=== PATIENT | female | born 1960 | race Caucasian/White ===

== ENCOUNTER 2017-06-05 07:02 | Observation (INO) | payer OTHER ==
[~2017-06-05] VITALS: Ht 170.2 cm; Wt 90.8 kg
[~2017-06-05 07:02] MED LIST: ASCO250C3 PO; CALC500C50 PO; CHOL100027 PO; CYAN1DRO SL; GLUCOSAMINE PO; LACT10CA3 PO; MAGN250T3 PO; MELA1TAB4 SL; MULT-845 PO
[2017-06-05] MEDS ORDERED: ASPIRIN 324 MG CHEW PO STA (07:13)
[2017-06-05] MEDS ORDERED: NITROGLYCERIN 0.4 MG SL PER TAB CHARGE SL STA (07:13)
[2017-06-05] MEDS ORDERED: SODIUM CHLORIDE 0.9% 1000ML 1,000 ML IV STA (07:13)
[2017-06-05 07:27] LABS: BASO % 0.3 %; BASO ABS # 0.03 K/uL (0-0.2); COMPLETE YES; EOS % 4.7 %; HEMATOCRIT 45.2 % (37-47); IG% 0.3 %; LYMPH % 31.9 %; LYMPH ABS # 3.04 K/uL (1.2-3.4); MEAN CELL VOLUME 90.6 fL (80-100); MEAN CORPUSCULAR HEMOGLOBIN 30.1 pg (25-34); MEAN CORPUSCULAR HGB CONC 33.2 g/dl (32-36); MEAN PLATELET VOLUME 9.8 fL (7.4-10.4); MONO % 6.8 %; PLATELET COUNT 354 K/uL (130-400); RED BLOOD COUNT 4.99 M/uL (4.2-5.4); WHITE BLOOD COUNT 9.52 K/uL (4.8-10.8)
[2017-06-05] MEDS ORDERED: GLUC10007 PO (07:28)
--- NOTE | 2017-06-05 07:28 | EMERGENCY ROOM VISIT NOTE ---
History First contact with patient: 07:05 Chief Complaint: CHEST PAIN Stated Complaint: CHEST PAINS Nursing Triage Summary: Pt states she woke up with bilateral chest pain approx 30 to 60 minutes ago. Pt associates bilateral arm tingling, SOB, diaphoresis, nausea, dizziness. Hx Heart murmer 10/10 "Heavy" History of Present Illness The patient is a 56 year old female who presents to the Emergency Room with complaints of chest pain. The patient states that she woke with chest pain approximately 30-60 minutes ago. She states the pain is in the chest, does not radiate is described as heaviness and rated 10/10. She also reports shortness of breath and feeling sweaty. The patient had to be assisted out of her vehicle. She denies any earache, sore throat, cough, fever. She denies any abdominal pain, nausea or vomiting. She denies any extremity swelling. She denies any recent travel or personal history of DVT, PE, coagulopathy or cancer. She does not smoke. She denies any personal history of hypertension, hyperlipidemia or diabetes. She states that there is cardiac history on her father's side. She has never had a stress test or cardiac catheterization. Review of Systems A 10 system review of systems was completed with positives and pertinent negatives listed in the HPI. Past Medical/Surgical History Medical Problems: (1) Chest pain (2) Cholelithiasis Nos (3) Hypothyroidism Nos (4) Kidney stone (5) Mucous Polyp Of Cervix Surgical Problems: (1) History of dental surgery (2) S/P section Family History Cancer Diabetes mellitus Heart disease Kidney disease Social History Smoking Status: Never Smoker Alcohol Use: none Drug Use: none Marital Status: Housing Status: lives with family Current/Historical Medications Scheduled Glucosamine Sulfate (Glucosamine), 1,000 MG PO DAILY Scheduled PRN Albuterol (Ventolin Hfa), 2 PUFFS INH Q4H PRN for Wheezing Physical Exam Vital Signs Date Time Temp Pulse Resp B/P (MAP) Pulse Ox O2 Delivery O2 Flow Rate FiO2 06/05/17 11:05 69 17 95 06/05/17 11:00 132/77 06/05/17 10:35 72 17 96 06/05/17 10:30 121/71 06/05/17 10:17 64 93 06/05/17 10:00 140/78 06/05/17 09:47 68 20 94 06/05/17 09:31 131/82 06/05/17 09:17 73 21 95 06/05/17 09:12 155/90 06/05/17 09:02 66 15 97 06/05/17 08:02 81 18 06/05/17 07:32 81 20 98 06/05/17 07:09 84 06/05/17 07:07 173/94 06/05/17 07:07 36.8 81 22 173/94 97 Room Air 06/05/17 07:07 97 Room Air Physical Exam VITALS: Vitals are noted on the nurse's note and reviewed by myself. Vital signs stable. The patient is afebrile. She is not tachycardic or hypoxic. GENERAL: This is a 56-year-old female, anxious appearing, in no acute distress, nondiaphoretic, well-developed well-nourished. SKIN: The skin was without rashes, erythema, edema, or bruising. There is no tenting of the skin. Capillary reflex less than 2 seconds. HEAD: Normocephalic atraumatic. EARS: The external ears are normal in appearance. EYES: Pupils equal round and reactive to light and accommodation. Conjunctivae without injection, sclerae without icterus. Extraocular movements intact. NOSE: Patent, turbinates without inflammation or discharge. MOUTH: Mucous membranes moist. Tonsils are not enlarged. Pharynx without erythema or exudate. Uvula midline. Airway patent. Tongue does not deviate. NECK: Supple without nuchal rigidity. No lymphadenopathy. No thyromegaly. Cervical spine is nontender. No JVD. HEART: Regular rate and rhythm without murmurs gallops or rubs. LUNGS: Clear to auscultation bilaterally without wheezes, rales or rhonchi. No retractions or accessory muscle use. ABDOMEN: Positive bowel sounds x 4. Soft, nontender, without masses or organomegaly. MUSCULOSKELETAL: No muscle atrophy, erythema, or edema noted. Full range of motion in all extremities. Normal gait. Strength 5/5 throughout. NEURO: Patient was alert and oriented to person place and time. No focal neurological deficits. Medical Decision & Procedures ER Provider Diagnostic Interpretation: CHEST ONE VIEW PORTABLE CLINICAL HISTORY: Chest pain. COMPARISON STUDY: Chest radiograph November 03, 2014. FINDINGS: Lung volumes are mildly diminished. No pneumothorax or pleural effusion is present. Linear bibasilar opacities suggest atelectasis. There is no consolidation to suggest pneumonia. Cardiomediastinal silhouette is normal. Pulmonary vascularity is normal. IMPRESSION: No acute cardiopulmonary findings. Laboratory Results 06/05/17 07:10 Red Blood Count 4.99, Mean Corpuscular Volume 90.6, Mean Corpuscular Hemoglobin 30.1, Mean Corpuscular Hemoglobin Concent 33.2, Mean Platelet Volume 9.8, Neutrophils (%) (Auto) 56.0, Lymphocytes (%) (Auto) 31.9, Monocytes (%) (Auto) 6.8, Eosinophils (%) (Auto) 4.7, Basophils (%) (Auto) 0.3, Neutrophils # (Auto) 5.32, Lymphocytes # (Auto) 3.04, Monocytes # (Auto) 0.65, Eosinophils # (Auto) 0.45, Basophils # (Auto) 0.03 06/05/17 07:10 06/05/17 09:01 Test 06/05/17 07:10 06/05/17 07:19 06/05/17 08:09 06/05/17 08:22 White Blood Count 9.52 K/uL (4.8-10.8) Red Blood Count 4.99 M/uL (4.2-5.4) Hemoglobin 15.0 g/dL (12.0-16.0) Hematocrit 45.2 % (37-47) Mean Corpuscular Volume 90.6 fL (80-100) Mean Corpuscular Hemoglobin 30.1 pg (25-34) Mean Corpuscular Hemoglobin Concent 33.2 g/dl (32-36) Platelet Count 354 K/uL (130-400) Mean Platelet Volume 9.8 fL (7.4-10.4) Neutrophils (%) (Auto) 56.0 % Lymphocytes (%) (Auto) 31.9 % Monocytes (%) (Auto) 6.8 % Eosinophils (%) (Auto) 4.7 % Basophils (%) (Auto) 0.3 % Neutrophils # (Auto) 5.32 K/uL (1.4-6.5) Lymphocytes # (Auto) 3.04 K/uL (1.2-3.4) Monocytes # (Auto) 0.65 K/uL (0.11-0.59) Eosinophils # (Auto) 0.45 K/uL (0-0.5) Basophils # (Auto) 0.03 K/uL (0-0.2) RDW Standard Deviation 41.3 fL (36.4-46.3) RDW Coefficient of Variation 12.5 % (11.5-14.5) Immature Granulocyte % (Auto) 0.3 % Immature Granulocyte # (Auto) 0.03 K/uL (0.00-0.02) Anion Gap 5.0 mmol/L (3-11) Est Creatinine Clear Calc Drug Dose 112.2 ml/min Estimated GFR () 115.3 Estimated GFR (Non- 99.4 BUN/Creatinine Ratio 13.2 (10-20) Calcium Level 8.6 mg/dl (8.5-10.1) Total Bilirubin 0.5 mg/dl (0.2-1) Alanine Aminotransferase (ALT/SGPT) 22 U/L (12-78) Alkaline Phosphatase 58 U/L (45-117) Total Protein 7.0 gm/dl (6.4-8.2) Albumin 3.3 gm/dl (3.4-5.0) Globulin 3.7 gm/dl (2.5-4.0) Albumin/Globulin Ratio 0.9 (0.9-2) Lipase 174 U/L (73-393) Bedside D-Dimer 127 ng/mlFEU (0-450) Urine Color YELLOW Urine Appearance CLEAR (CLEAR) Urine pH 7.5 (4.5-7.5) Urine Specific [place] 1.010 (1.000-1.030) Urine Protein NEG (NEG) Urine Glucose (UA) NEG (NEG) Urine Ketones NEG (NEG) Urine Occult Blood NEG (NEG) Urine Nitrite NEG (NEG) Urine Bilirubin NEG (NEG) Urine Urobilinogen NEG (NEG) Urine Leukocyte Esterase NEG (NEG) Prothrombin Time 9.9 SECONDS (9.0-12.0) Prothromb Time International Ratio 0.9 (0.9-1.1) Activated Partial Thromboplast Time 26.6 SECONDS (21.0-31.0) Partial Thromboplastin Ratio 1.0 Test 06/05/17 09:01 06/05/17 09:46 Aspartate Amino Transf (AST/SGOT) 13 U/L (15-37) Bedside Troponin I < 0.030 ng/ml (0-0.045) Medications Administered Medications (Trade) Dose Ordered Sig/Сергей Route Start Time Stop Time Status Last Admin Dose Admin Aspirin (Aspirin Chew) 324 mg NOW STAT PO 06/05/17 07:13 06/05/17 07:15 DC 06/05/17 07:29 324 MG Sodium Chloride 1,000 ml @ 125 mls/hr Q8H STAT IV 06/05/17 07:13 06/05/17 12:38 DC 06/05/17 07:29 125 MLS/HR Procedure The patient was monitored on a turntable worker. They maintained a normal sinus rhythm without ectopy. ECG Indication: chest pain Rate (beats per minute): 87 Rhythm: normal sinus Findings: nonspecific-ST abn Change: no significant change ED Course The patient was seen and examined. Previous visits were reviewed. The patient does not have a fever or leukocytosis. She does not have any significant electrolyte abnormality. Initial cardiac enzymes are not elevated. Lipase is not elevated. D-dimer is not elevated. Urinalysis is negative. Chest x-ray does not reveal any significant acute abnormality Initial EKG revealed a normal sinus rhythm with nonspecific ST-T wave changes. The patient was given aspirin. Her pain resolved. She was not given nitroglycerin as she was pain-free. The patient was given an ambulatory trial. Near the end of the ambulatory trial , the patient developed chest pain which she described as pressure. At this time an EKG was obtained. This revealed a normal sinus rhythm with a rate of 75 bpm without any evidence for ischemia or arrhythmia. A repeat troponin was obtained and was negative. This was approximately a 90 minute troponin. I discussed the case with Dr. Barrientos. He suggest that since the patient's pain recurred and it seems to be exertional in nature she would be best served to be admitted to the hospital and evaluated from a cardiac standpoint. I discussed the case with the hospitalist service and they will evaluate the patient. The case was discussed with Dr. Guzman who agrees with the assessment and plan. Medical Decision DIFFERENTIAL DIAGNOSIS: Aortic dissection, myocarditis, pericarditis, cervical disc disease, costochondritis, herpes zoster, rib fracture, pleuritis, pneumonia , pulmonary embolus, tension pneumothorax, anxiety disorder, somatoform disorder , choledocholithiasis, status, esophagitis, esophageal spasm, esophageal reflux , esophageal rupture, pancreatitis, peptic ulcer disease, cardiac ischemia, ST elevation CA, acute coronary syndrome, arrhythmia, coronary artery vasospasm. vavular heart disease, coronary artery disease, among others. Medication Reconcilliation Current Medication List: was personally reviewed by me Blood Pressure Screening Patient's blood pressure: Elevated blood pressure Blood pressure disposition: Referred to PCP Impression Primary Impression: Substernal precordial chest pain Departure Information Dispostion Admitted as an inpatient Referrals Winnie Macias D.O. (PCP) Patient Instructions My [facility]
--- NOTE | 2017-06-05 07:31 | DIAGNOSTIC IMAGING REPORT ---
CHEST ONE VIEW PORTABLE CLINICAL HISTORY: Chest pain. COMPARISON STUDY: Chest radiograph November 03, 2014. FINDINGS: Lung volumes are mildly diminished. No pneumothorax or pleural effusion is present. Linear bibasilar opacities suggest atelectasis. There is no consolidation to suggest pneumonia. Cardiomediastinal silhouette is normal. Pulmonary vascularity is normal. IMPRESSION: No acute cardiopulmonary findings. Electronically signed by: Bharat Bean M.D. 06/05/2017 7:30 AM Dictated Date/Time: 06/05/2017 7:29 AM
[2017-06-05 07:38] LABS: POINT OF CARE TROPONIN I < 0.030 ng/ml (0-0.045)
[2017-06-05 07:52] LABS: ALB/GLOB RATIO 0.9 (0.9-2); ALKALINE PHOSPHATASE 58 U/L (45-117); ALT/SGPT 22 U/L (12-78); BLOOD UREA NITROGEN 9 mg/dl (7-18); BUN/CREATININE RATIO 13.2 (10-20); CALCIUM 8.6 mg/dl (8.5-10.1); CARBON DIOXIDE 27 mmol/L (21-32); CHLORIDE 108 mmol/L (98-107); CREATININE 0.66 mg/dl (0.60-1.20); GLUCOSE 97 mg/dl (70-99); SODIUM 140 mmol/L (136-145)
[2017-06-05 08:19] LABS: URINE APPEARANCE CLEAR (CLEAR); URINE BILIRUBIN NEG (NEG); URINE COLOR YELLOW; URINE NITRITE NEG (NEG); URINE PH 7.5 (4.5-7.5); UROBILINOGEN NEG (NEG); ZZUR CULT IF INDIC CLEAN CATCH NO
[2017-06-05 08:22] LABS: MANUAL MICROSCOPIC REQUIRED? NO; REVIEW REQ? NO
[2017-06-05 08:43] LABS: INR 0.9 (0.9-1.1); PROTHROMBIN TIME (PATIENT) 9.9 SECONDS (9.0-12.0)
[2017-06-05] MEDS ORDERED: PRVHFAIN INH (11:56)
[2017-06-05] MEDS ORDERED: ALBUTEROL HFA 8 GM INHALER INH PRN (12:00)
[2017-06-05] MEDS ORDERED: NITROGLYCERIN 0.4 MG SL PER TAB CHARGE SL PRN (12:00)
[2017-06-05] MEDS ORDERED: ACETAMINOPHEN 325 MG TAB PO PRN (12:00)
[2017-06-05] MEDS ORDERED: ONDANSETRON INJ 2 MG/ML 2 ML VIAL IV PRN (12:00)
[2017-06-05] MEDS ORDERED: IV FLUIDS COMPLETED PRN (12:45)
[2017-06-05 12:53] VITALS: BP 147/89; PULSE 66; TEMP 36.6; O2SAT 95; Ht 170.2 cm; Wt 90.8 kg
--- NOTE | 2017-06-05 14:16 | History and Physical ---
History & Physical Date & Time of Service: Jun 05, 2017 at 11:58 Chief Complaint: Chest Pains Primary Care Physician: Winnie Macias D.O. History of Present Illness Source: patient, clinic records This is a 56 y/o female who presents to the ED with chest pain. Patient reports waking up with substernal pressure with associated SOB, diaphoresis, dizziness, tingling of bilateral arms. Episode lasted approximately 2 hours. Her drove her to ER and pain was resolving when she arrived. She required assistance out of the vehicle. She was treated with oxygen, 4 baby aspirin, and IVF's. Then in the ER while ambulating in the hallway she had recurrent chest pain which resolved with rest. She is now feeling asymptomatic. She has not taken any nitro. Patient denies fever, URI symptoms, cough, abdominal pain, acid reflux, N/V, bowel or bladder changes, rash, anxiety. No heavy lifting. Was seen by PCP 6 days ago for nausea which resolved with discontinuation of her vitamins. Pt tripped on a curb at [employer] 4 days ago and fell onto her right knee. No head trauma or LOC. Developed R knee and ankle pain and swelling, improving with ice and Advil. Still has mild R knee discomfort with ambulating and stairs. Has underlying OA of right knee. No history of CAD, HTN, HL, DM. Had heart murmur during childhood. No recent echo or stress test. Past Medical/Surgical History Medical Problems: (1) Cholelithiasis Nos Status: Chronic (2) Hypothyroidism Nos Status: Chronic (3) Kidney stone Status: Chronic (4) Mucous Polyp Of Cervix Status: Chronic Surgical Problems: (1) History of dental surgery Status: Chronic (2) S/P section Status: Chronic Family History Cancer Diabetes mellitus Heart disease Kidney disease She reports heart problems in relatives on her father's side, details unknown. Father had COPD but no MT/ CAD. Social History Smoking Status: Never Smoker Alcohol Use: socially Drug Use: none Marital Status: Housing status: lives with significant other Multi-Drug Resistant Organisms History of MDRO: No Allergies Coded Allergies: No Known Allergies (Unverified , 06/05/17) Home Medications Scheduled Glucosamine Sulfate (Glucosamine), 1,000 MG PO DAILY Scheduled PRN Albuterol (Ventolin Hfa), 2 PUFFS INH Q4H PRN for Wheezing Review of Systems Ten systems reviewed and negative except as noted in HPI. Physical Exam Vital Signs Date Time Temp Pulse Resp B/P (MAP) Pulse Ox O2 Delivery O2 Flow Rate FiO2 06/05/17 10:30 121/71 06/05/17 10:17 64 93 06/05/17 10:00 140/78 06/05/17 09:47 68 20 94 06/05/17 09:31 131/82 06/05/17 09:17 73 21 95 06/05/17 09:12 155/90 06/05/17 09:02 66 15 97 06/05/17 08:02 81 18 06/05/17 07:32 81 20 98 06/05/17 07:09 84 06/05/17 07:07 173/94 06/05/17 07:07 36.8 81 22 173/94 97 Room Air 06/05/17 07:07 97 Room Air General Appearance: WD/WN, no apparent distress, + pertinent finding (alert 56 year old female, no distress, at bedside) Head: normocephalic, atraumatic Eyes: normal inspection, PERRL, EOMI ENT: hearing grossly normal, pharynx normal Neck: supple, trachea midline Respiratory/Chest: chest non-tender, lungs clear, normal breath sounds, no respiratory distress, no accessory muscle use Cardiovascular: regular rate, rhythm, no murmur, normal peripheral pulses Abdomen/GI: normal bowel sounds, non tender, soft Extremities/Musculoskelatal: no calf tenderness, no pedal edema, + pertinent finding (right knee and right ankle nontender to palpation, no pain on ROM) Neurologic/Psych: alert, normal mood/affect, oriented x 3 Skin: normal color, warm/dry, no rash (no rash on the chest) Diagnostics Laboratory Results Results Past 24 Hours Test 06/05/17 07:10 06/05/17 07:19 06/05/17 08:09 06/05/17 08:22 Range/Units White Blood Count 9.52 4.8-10.8 K/uL Red Blood Count 4.99 4.2-5.4 M/uL Hemoglobin 15.0 12.0-16.0 g/dL Hematocrit 45.2 37-47 % Mean Corpuscular Volume 90.6 80-100 fL Mean Corpuscular Hemoglobin 30.1 25-34 pg Mean Corpuscular Hemoglobin Concent 33.2 32-36 g/dl Platelet Count 354 130-400 K/uL Mean Platelet Volume 9.8 7.4-10.4 fL Neutrophils (%) (Auto) 56.0 % Lymphocytes (%) (Auto) 31.9 % Monocytes (%) (Auto) 6.8 % Eosinophils (%) (Auto) 4.7 % Basophils (%) (Auto) 0.3 % Neutrophils # (Auto) 5.32 1.4-6.5 K/uL Lymphocytes # (Auto) 3.04 1.2-3.4 K/uL Monocytes # (Auto) 0.65 0.11-0.59 K/uL Eosinophils # (Auto) 0.45 0-0.5 K/uL Basophils # (Auto) 0.03 0-0.2 K/uL RDW Standard Deviation 41.3 36.4-46.3 fL RDW Coefficient of Variation 12.5 11.5-14.5 % Immature Granulocyte % (Auto) 0.3 % Immature Granulocyte # (Auto) 0.03 0.00-0.02 K/uL Sodium Level 140 136-145 mmol/L Potassium Level 3.5-5.1 mmol/L Chloride Level 108 98-107 mmol/L Carbon Dioxide Level 27 21-32 mmol/L Anion Gap 5.0 3-11 mmol/L Blood Urea Nitrogen 9 7-18 mg/dl Creatinine 0.66 0.60-1.20 mg/dl Est Creatinine Clear Calc Drug Dose 112.2 ml/min Estimated GFR () 115.3 Estimated GFR (Non- 99.4 BUN/Creatinine Ratio 13.2 10-20 Random Glucose 97 70-99 mg/dl Calcium Level 8.6 8.5-10.1 mg/dl Total Bilirubin 0.5 0.2-1 mg/dl Aspartate Amino Transf (AST/SGOT) 15-37 U/L Alanine Aminotransferase (ALT/SGPT) 22 12-78 U/L Alkaline Phosphatase 58 45-117 U/L Total Creatine Kinase 26-192 U/L Creatine Kinase MB < 0.5 0.5-3.6 ng/ml Creatine Kinase MB Ratio 0-3.0 Troponin I < 0.015 0-0.045 ng/ml Total Protein 7.0 6.4-8.2 gm/dl Albumin 3.3 3.4-5.0 gm/dl Globulin 3.7 2.5-4.0 gm/dl Albumin/Globulin Ratio 0.9 0.9-2 Lipase 174 73-393 U/L Bedside D-Dimer 127 0-450 ng/mlFEU Bedside Troponin I < 0.030 0-0.045 ng/ml Urine Color YELLOW Urine Appearance CLEAR CLEAR Urine pH 7.5 4.5-7.5 Urine Specific [place] 1.010 1.000-1.030 Urine Protein NEG NEG Urine Glucose (UA) NEG NEG Urine Ketones NEG NEG Urine Occult Blood NEG NEG Urine Nitrite NEG NEG Urine Bilirubin NEG NEG Urine Urobilinogen NEG NEG Urine Leukocyte Esterase NEG NEG Prothrombin Time 9.9 9.0-12.0 SECONDS Prothromb Time International Ratio 0.9 0.9-1.1 Activated Partial Thromboplast Time 26.6 21.0-31.0 SECONDS Partial Thromboplastin Ratio 1.0 Test 06/05/17 09:01 06/05/17 09:46 Range/Units Potassium Level 4.0 3.5-5.1 mmol/L Aspartate Amino Transf (AST/SGOT) 13 15-37 U/L Total Creatine Kinase 41 26-192 U/L Bedside Troponin I < 0.030 0-0.045 ng/ml Diagnostic Radiology CHEST ONE VIEW PORTABLE CLINICAL HISTORY: Chest pain. COMPARISON STUDY: Chest radiograph November 03, 2014. FINDINGS: Lung volumes are mildly diminished. No pneumothorax or pleural effusion is present. Linear bibasilar opacities suggest atelectasis. There is no consolidation to suggest pneumonia. Cardiomediastinal silhouette is normal. Pulmonary vascularity is normal. IMPRESSION: No acute cardiopulmonary findings. EKG Initial EKG 07:07- NSR, nonspecific T wave flattening in III, nonspecific minimal ST depression (<1 mm) in V4-V5 Repeat EKG 09:12- NSR, nonspecific T wave inversion in III, nonspecific minimal ST depression in V4 (<1 mm), ST segment normal in V5 Impression Assessment and Plan CHEST PAIN Rule out ACS; risk factors- obesity, family hx of heart disease of paternal relatives (details unknown) Troponin negative x 2 in ER EKG's- nonspecific STTWA CXR- no acute findings Trend cardiac enzymes Check echo Check fasting lipid panel Received 4 baby ASA; will start ASA 81 mg daily Consult cardiology NPO after midnight for possible stress test DVT PROPHYLAXIS Heparin SQ FULL CODE DISPOSITION Observation telemetry Follows with Dr. Macias for primary care Patient seen in collaboration with Dr. Cortés. Please see his addendum. ADDENDUM: This is a 56 year old female who presents to the ED with substernal chest pain associated with shortness of breath; also had numbness/tingling of b/l arms. Cardiac: RRR, +S1, S2 initial cardiac enzymes negative echo - no significant findings will go for stress test in AM appreciate cardio input continue aspirin 81mg, monitor in tele VTE Prophylaxis VTE Risk Assessment Done? Y/N: Yes Risk Level: Low
--- NOTE | 2017-06-05 15:06 | CARDIOLOGY CONSULTATION ---
DATE OF CONSULTATION: 06/05/2017 REFERRING PHYSICIAN: Dr. Val Cortés. REASON FOR CONSULTATION: Chest pain. HISTORY OF PRESENT ILLNESS: Ms. Trevino is a 56-year-old female who presented to the Emergency Department this morning with substernal chest heaviness and tightness. The patient felt someone was sitting on her chest this morning. There was associated shortness of breath, diaphoresis, dizziness as well as paresthesias of her bilateral upper extremities. The discomfort lasted for nearly 2 hours. Her brought her to the Emergency Department and the pain was slowly improving when she arrived. She was treated with oxygen, aspirin, and IV fluid. Her pain subsided and then while ambulating in the Emergency Department, her chest pain recurred and resolved with rest. She was admitted to the progressive care unit. She is currently asymptomatic. There were no dysrhythmias on telemetry. Her first 2 sets of cardiac enzymes are negative. Denies prior history of coronary artery disease, congestive heart failure, diabetes, hypertension, or dyslipidemia. Reported heart murmur during childhood. She reports coronary artery disease and second degree relatives. Denies any fever, chills, or URI symptoms. Notes chronic issues with her gallbladder and a ping pong ball sized gallstone. Recently evaluated by her PCP for nausea. At that time, her family doctor discontinued all of her dietary supplements, which seemed to improve symptoms. Offers no other complaints at this time. REVIEW OF SYSTEMS: The pertinent positives noted above. A comprehensive system review is negative. PAST MEDICAL HISTORY: 1. Cholelithiasis. 2. Hypothyroidism. 3. Nephrolithiasis. 4. Cervical polyp. PAST SURGICAL HISTORY: 1. Dental surgery. 2. . FAMILY HISTORY: Negative for premature coronary artery disease or sudden cardiac in first degree relatives; however, she reports coronary disease in second degree relatives as well as possible coronary disease in her 57-year-old brother, although she is not aware of any stenting, bypass surgery, or heart attacks. SOCIAL HISTORY: Lifelong nonsmoker. She is , lives with her . ALLERGIES: No known drug allergies. HOME MEDICATIONS: 1. Glucosamine sulfate. 2. Albuterol as needed. ECG on admission demonstrates sinus rhythm with a nonspecific ST abnormality. Repeat ECG is within normal limits. First 2 sets of cardiac enzymes are undetectable. Sodium is 140, potassium 108, CO2 is 27, BUN is 9, and creatinine 0.66. CK-MB is less than 0.5. Albumin is 3.3 and globulin is 3.7. Lipase 174. D-dimer is 127. Telemetry demonstrates sinus rhythm. PHYSICAL EXAMINATION: VITAL SIGNS: Temperature is 36.6 degrees centigrade, pulse 66 beats per minute and regular, respiratory rate is 19 breaths per minute, blood pressure 147/89, and Sa02 is 95% on room air. GENERAL: NAD, awake, alert and oriented x3. HEENT: Mucous membranes are moist. No scleral icterus. Conjunctivae pink. NECK: Supple. There is no JVD, no HJR and no carotid bruit. HEART: Regular with a normal S1 and S2. There is no murmur, rub, or gallop. LUNGS: Clear without rales, rhonchi or wheeze. ABDOMEN: Soft and nontender. No rebound or guarding. Normal bowel sounds. EXTREMITIES: Warm and dry without clubbing, cyanosis, or edema. There is currently in an ice pack on her right ankle due to a recent injury while shopping in a grocery store. NEUROLOGIC: Demonstrates no focal deficit. FINAL IMPRESSION: 1. A 56-year-old female presents with episode of chest discomfort and associated symptoms listed above. Initial cardiac testing including ECG, 2 sets of cardiac enzymes and telemetry are unremarkable. 2. History of cholelithiasis with a 'ping pong ball' sized gallbladder stone, which is currently under observation by her primary care physician. LFTs currently within normal limits. PLAN AND RECOMMENDATIONS: Cardiac enzymes will be trended x3 sets. A resting 2D transthoracic echo will be performed today. Repeat ECG in the a.m. If cardiac enzymes and resting echo within normal limits, likely proceed with pharmacologic stress testing in the a.m. Cannot proceed with stress testing this afternoon as the patient has consumed her midday meal. She is unable to ambulate on a treadmill due to recent ankle injury. I will also order right upper quadrant ultrasound for evaluation of cholelithiasis. Further recommendations pending clinical course and review of testing results. Thank you for allowing me to take part in the care of your patient. KOURTNEY
[2017-06-05 15:48] VITALS: BP 138/82; PULSE 71; TEMP 36.7; O2SAT 96
--- NOTE | 2017-06-05 16:51 | ECHOCARDIOGRAM REPORT ---
*NOTICE TO RECEIVING [employer] This information is strictly Confidential and protected under [place] law. [place] law prohibits you from making any further disclosure of this information unless further disclosure is expressly permitted by the written consent of the person to whom it pertains or is authorized by law. A general authorization for the release of medical or other information is not sufficient for this purpose. Hospital accepts no responsibility if the information is made available to any other person, INCLUDING THE PATIENT. Interpretation Summary * Name: SID HAIRSTON Study Date: 06/05/2017 03:08 PM BP: 143/82 mmHg * Patient Location: C.2E\S\E204\S\1 HR: 67 * : 1960 (M/d/yyyy) Gender: Female Height: 67 in * Age: 56 yrs Ethnicity: [place] Weight: 203 lb * Ordering Physician: Tatyana Parsons * Referring Physician: Self, Referred * Performed By: Elizabet Garibay RCS * * Reason For Study: Chest Pain * BSA: 2.0 m2 * The study was technically adequate. * There is no comparison study available. * -- Conclusions -- * Ejection Fraction = 60-65%. * The left ventricular wall motion is normal. * No significant valvular disease. Procedure Details * A complete two-dimensional transthoracic echocardiogram was performed (2D, M-mode, Doppler and color flow Doppler). Left Ventricle * The left ventricle is normal in size. * There is normal left ventricular wall thickness. * Ejection Fraction = 60-65%. * Left ventricular systolic function is normal. * The left ventricular wall motion is normal. Right Ventricle * The right ventricle is normal size. * The right ventricular systolic function is normal as assessed by tricuspid annular plane systolic excursion (TAPSE) (normal >1.5 cm). Atria * The left atrial size is normal. * Right atrial size is normal. * There is no evidence of atrial septal defect, but resolution does not allow assessment for a patent foramen ovale. Mitral Valve * The mitral valve is normal. * There is no mitral valve stenosis. * There is trace mitral regurgitation. Tricuspid Valve * The tricuspid valve is normal. * There is no tricuspid stenosis. * Significant tricuspid regurgitation is absent. Aortic Valve * The aortic valve is trileaflet. * Aortic stenosis is absent. * There is no significant aortic regurgitation. Pulmonic Valve * The pulmonary valve is not well seen, but the Doppler examination is normal without significant regurgitation or stenosis. Great Vessels * The aortic root is normal size. Pericardium/Pleural * There is no pericardial effusion. Great Vessels * Normal inferior vena cava diameter and respiratory variation suggests normal central venous pressure. Left Ventricular Diastolic Function * Pulse wave TDI of the anterior and posterior mitral annulas demonstrates normal LV relaxation MMode 2D Measurements and Calculations IVSd 0.81 cm IVSs 1.3 cm LVIDd 5.1 cm LVIDs 3.2 cm LVPWd 0.90 cm LVPWs 1.4 cm IVS/LVPW 0.90 FS 37.6 % EDV(Teich) 125.5 ml ESV(Teich) 41.0 ml EF(Teich) 67.3 % EDV(cubed) 135.0 ml ESV(cubed) 32.8 ml EF(cubed) 75.7 % % IVS thick 62.7 % % LVPW thick 52.5 % LV mass(C)d 154.5 grams LV mass(C)dI 75.9 grams/m\S\2 LV mass(C)s 143.5 grams LV mass(C)sI 70.5 grams/m\S\2 CO(Teich) 5.8 l/min CI(Teich) 2.9 l/min/m\S\2 SV(Teich) 84.5 ml SI(Teich) 41.5 ml/m\S\2 CO(cubed) 7.0 l/min CI(cubed) 3.5 l/min/m\S\2 SV(cubed) 102.2 ml SI(cubed) 50.2 ml/m\S\2 Ao root diam 3.8 cm Ao root area 11.6 cm\S\2 ACS 2.4 cm LA dimension 3.1 cm asc Aorta Diam 3.3 cm LA/Ao 0.80 LVAd ap4 33.8 cm\S\2 LVLd ap4 8.6 cm EDV(MOD-sp4) 111.0 ml LVAs ap4 15.8 cm\S\2 LVLs ap4 6.9 cm ESV(MOD-sp4) 33.0 ml EF(MOD-sp4) 70.3 % LVAd ap2 30.2 cm\S\2 LVLd ap2 8.3 cm EDV(MOD-sp2) 92.0 ml LVAs ap2 16.0 cm\S\2 LVLs ap2 6.4 cm ESV(MOD-sp2) 35.0 ml EF(MOD-sp2) 62.0 % CO(MOD-sp4) 5.4 l/min CI(MOD-sp4) 2.6 l/min/m\S\2 SV(MOD-sp4) 78.0 ml SI(MOD-sp4) 38.3 ml/m\S\2 CO(MOD-sp2) 3.9 l/min CI(MOD-sp2) 1.9 l/min/m\S\2 SV(MOD-sp2) 57.0 ml SI(MOD-sp2) 28.0 ml/m\S\2 Doppler Measurements and Calculations MV E max ba 60.2 cm/sec MV A max ba 61.3 cm/sec MV E/A 0.98 MV P1/2t max ba 66.1 cm/sec MV P1/2t 90.5 msec MVA(P1/2t) 2.4 cm\S\2 MV dec slope 213.7 cm/sec\S\2 MV dec time 0.32 sec Ao V2 max 112.9 cm/sec Ao max PG 5.1 mmHg Ao max PG (full) 2.5 mmHg LV V1 max PG 2.6 mmHg LV V1 max 80.5 cm/sec PA V2 max 87.7 cm/sec PA max PG 3.1 mmHg PI max ba 170.6 cm/sec PI max PG 11.6 mmHg PI dec slope 134.5 cm/sec\S\2 PI P1/2t 371.7 msec
[2017-06-05 19:53] VITALS: BP 126/76; PULSE 72; TEMP 36.6; O2SAT 95
[2017-06-05] MEDS: HEPARIN SOD 5000 UNIT/0.5 ML CARP SQ SCH (22:14)
[2017-06-06] VITALS: BP 127/69; PULSE 81; TEMP 36.7; O2SAT 96
[2017-06-06 04:00] VITALS: BP 120/71; PULSE 77; TEMP 36.8; O2SAT 94
[2017-06-06] MEDS: HEPARIN SOD 5000 UNIT/0.5 ML CARP SQ SCH (05:54)
[2017-06-06 06:12] LABS: CHOLESTEROL/HDL RATIO 3.9
[2017-06-06 07:39] VITALS: BP 126/78; PULSE 71; TEMP 36.7; O2SAT 93
--- NOTE | 2017-06-06 08:58 | Progress Note ---
Subjective Date of Service: Jun 06, 2017. Subjective Pt evaluation today including: conversation w/ patient, physical exam, lab review, review of studies, review of inpatient medication list Saw/examined the patient in room 204 She's doing okay, no chest pain or shortness of breath overnight No fevers/chills Problem List Medical Problems: (1) Dentalgia Status: Acute (2) Hypothyroidism Nos Status: Chronic (3) Substernal precordial chest pain Status: Acute Review of Systems Constitutional: No fever, No chills Respiratory: No cough, No sputum, No shortness of breath Cardiac: No chest pain, No edema, No palpitations Abdomen: No pain Heme: No abnormal bleeding/bruising Medications Current Inpatient Medications Medications (Trade) Dose Ordered Sig/Сергей Route Start Time Stop Time Status Last Admin Dose Admin Heparin Sodium (Porcine) (Heparin Sq 5000 Unit/0.5ml) 5,000 unit Q8 SQ 06/05/17 14:00 07/05/17 13:59 06/06/17 05:54 5,000 UNIT Acetaminophen (Tylenol Tab) 650 mg Q4H PRN PO 06/05/17 12:00 07/05/17 11:59 Ondansetron HCl (Zofran Inj) 4 mg Q6H PRN IV 06/05/17 12:00 07/05/17 11:59 Nitroglycerin (Nitrostat Tab) 0.4 mg UD PRN SL 06/05/17 12:00 07/05/17 11:59 Aspirin (Ecotrin Tab) 81 mg QAM PO 06/06/17 09:00 07/06/17 08:59 Albuterol (Ventolin Hfa Inhaler) 2 puffs Q4H PRN INH 06/05/17 12:00 07/05/17 11:59 Miscellaneous (Iv Fluids Completed) 1 ea PRN PRN N/A 06/05/17 12:45 06/05/18 12:44 Objective Vital Signs Date Time Temp Pulse Resp B/P (MAP) Pulse Ox O2 Delivery O2 Flow Rate FiO2 06/06/17 07:39 36.7 71 18 126/78 (94) 93 Room Air 06/06/17 04:00 36.8 77 16 120/71 (87) 94 Room Air 06/06/17 04:00 Room Air 06/06/17 00:00 36.7 81 18 127/69 (88) 96 Room Air 06/05/17 23:59 Room Air 06/05/17 20:00 Room Air 06/05/17 19:53 36.6 72 22 126/76 (93) 95 Room Air 06/05/17 16:00 Room Air 06/05/17 15:48 36.7 71 22 138/82 (100) 96 Room Air 06/05/17 12:53 36.6 66 19 147/89 95 Room Air 06/05/17 12:08 76 06/05/17 11:35 69 22 97 06/05/17 11:30 143/82 06/05/17 11:05 69 17 95 06/05/17 11:00 132/77 06/05/17 10:35 72 17 96 06/05/17 10:30 121/71 06/05/17 10:17 64 93 06/05/17 10:00 140/78 06/05/17 09:47 68 20 94 06/05/17 09:31 131/82 06/05/17 09:17 73 21 95 06/05/17 09:12 155/90 06/05/17 09:02 66 15 97 Physical Exam General Appearance: no apparent distress Respiratory/Chest: lungs clear, normal breath sounds, no respiratory distress, no accessory muscle use Cardiovascular: regular rate, rhythm, no edema, no murmur Abdomen: normal bowel sounds, non tender, soft Extremities: normal inspection, no pedal edema Neurologic/Psychiatric: no motor/sensory deficits, alert, normal mood/affect Laboratory Results Last 24 Hours Test 06/05/17 09:01 06/05/17 09:46 06/05/17 12:56 06/05/17 18:55 Potassium Level 4.0 mmol/L Aspartate Amino Transf (AST/SGOT) 13 U/L Total Creatine Kinase 41 U/L 51 U/L 42 U/L Bedside Troponin I < 0.030 ng/ml Creatine Kinase MB < 0.5 ng/ml < 0.5 ng/ml Creatine Kinase MB Ratio Troponin I < 0.015 ng/ml < 0.015 ng/ml Test 06/06/17 05:24 Triglycerides Level 129 mg/dl Cholesterol Level 232 mg/dl HDL Cholesterol 60 mg/dl LDL Cholesterol, Calculated 146 mg/dl VLDL Cholesterol, Calculated 26 mg/dl Cholesterol/HDL Ratio 3.9 Assessment and Plan Chest Pain r/o ACS cardiac enzymes negative x3 resting echo with no valvular/wall motion issues, normal LVEF appreciate cardiology input; stress test today EKG appears similar to previously may need outpatient sleep study to assess for LEIF RUQ U/S pending to assess for cholecystitis/cholelithiasis Hypercholesterolemia total cholesterol elevated >200 no ASCVD, no DM2 10 year ASCVD risk is low recommended dietary changes and exercise 30 minutes/day x 5days/week DVT ppx subq heparin FULL CODE d/c home if stress test is negative
[2017-06-06] MEDS ORDERED: ASPIRIN 81 MG ECTAB PO SCH (09:00)
--- NOTE | 2017-06-06 09:41 | DIAGNOSTIC IMAGING REPORT ---
ULTRASOUND RIGHT UPPER QUADRANT ABDOMEN CLINICAL HISTORY: Atypical chest pain. Nausea. COMPARISON STUDY: Abdominal CT dated 08/05/2008. TECHNIQUE: Real-time, grayscale, and color flow sonography of the right upper quadrant of the abdomen was performed. Images are reviewed in the transverse and longitudinal planes. FINDINGS: Liver: The liver is normal in size and echotexture. There is no intrahepatic biliary ductal dilatation. The main portal vein is patent. Gallbladder: There is a large shadowing calcified gallstone. There is no gallbladder wall thickening or pericholecystic fluid. A sonographic Tan's sign is reportedly absent. The common bile duct measures up to 0.4 cm in diameter. Pancreas: Visualized portions of the pancreatic head and body are normal in appearance. Right kidney: Survey images of the right kidney demonstrate normal size and echotexture. There is no hydronephrosis. A nonobstructing right renal calculus is observed. Ascites: None. IMPRESSION: 1. Cholelithiasis without sonographic evidence of acute cholecystitis. 2. A nonobstructing right renal calculus is observed. Electronically signed by: Gibson Baum M.D. 06/06/2017 9:39 AM Dictated Date/Time: 06/06/2017 9:38 AM
[2017-06-06] MEDS ORDERED: DOBUTamine HCL 12.5 MG/ML 20 ML VIAL ONE (10:01)
[2017-06-06] MEDS ORDERED: METOPROLOL TARTRATE 1 MG/ML VIAL ONE (10:01)
[2017-06-06] MEDS ORDERED: ATROPINE SULFATE 0.1 MG/ML 5ML SYR ONE (10:01)
[2017-06-06 11:50] VITALS: BP 127/80; PULSE 76; TEMP 36.6; O2SAT 94
--- NOTE | 2017-06-06 12:26 | DOBUTAMINE ECHO ---
*NOTICE TO RECEIVING [employer] This information is strictly Confidential and protected under [place] law. [place] law prohibits you from making any further disclosure of this information unless further disclosure is expressly permitted by the written consent of the person to whom it pertains or is authorized by law. A general authorization for the release of medical or other information is not sufficient for this purpose. Hospital accepts no responsibility if the information is made available to any other person, INCLUDING THE PATIENT. Interpretation Summary * Name: SID HAIRSTON Study Date: 06/06/2017 10:10 AM BP: 140/69 mmHg * Patient Location: .2E\S\E204\S\1 HR: 71 * : 1960 (M/d/yyyy) Gender: Female Height: 67 in * Age: 56 yrs Ethnicity: [place] Weight: 200 lb * Ordering Physician: Kirill Barrientos * Referring Physician: Self, Referred * Performed By: Velma Romeo RCS * * Reason For Study: Chest pain * BSA: 2.0 m2 * The study was technically adequate. * STRESS STUDY: Normal pharmacologic stress echocardiogram. No echocardiographic or ECG evidence of myocardial ischemia having achieved heart rate adequate for diagnostic purposes. * -- Conclusions -- * Hypertensive BP responsive to dobutamine infusion. Procedure Details * Left Ventricle The left ventricular ejection fraction increases normally with stress. The left ventricular end-systolic cavity size reduces post-stress (normal response). The left ventricular wall motion with stress is normal. Ejection Fraction = 60-65%. Resting wall motion: Normal. Stress wall motion: Appropriate increase in Left ventricular systolic function and decrease in cavity size. No stress induced segmental wall motion abnormalities. * Stress Parameters The baseline ECG displays normal sinus rhythm. Stress ECG: No ST changes. No arrhythmias. The stress portion of this study was personally supervised by the undersigned interpreting physician. Rest heart rate was '71' BPM. Rest blood pressure was '140/69' Maximum heart rate achieved was 150 bpm. Maximum heart rate was 90 % of maximum age-predicted heart rate. Maximum blood pressure was '222/66' Maximum Dobutamine infusion rate was '30' mcg/kg/min. A total of 0.5 mg of intravenous Atropine was used to supplement Dobutamine for heart rate response. Dobutamine infusion was terminated due to achieving target heart rate A total of 5 mg of IV Metoprolol was administered to reverse Dobutamine-induced tachycardia. The patient exhibited headache during the drug infusion. Hypertensive BP responsive to dobutamine infusion. *
--- NOTE | 2017-06-06 13:19 | Cardiology Follow-Up ---
Subjective General Date of Service: Jun 06, 2017. Pt evaluation today including: conversation w/ patient, physical exam, chart review, lab review, review of studies, review of inpatient medication list History of Present Illness The patient is a 56 year old female seen prior to stress testing. No recurrent chest discomfort overnight. No dysrhythmias on telemetry. Offers no complete at this time. Allergies Coded Allergies: No Known Allergies (Unverified , 06/05/17) Social History Smoking Status: Never Smoker Hx Tobacco Use In Past Year?: No Hx Alcohol Use - Type And Amou: No Hx Substance Use - Type And Am: No Problem List Medical Problems: (1) Dentalgia Status: Acute (2) Hypothyroidism Nos Status: Chronic (3) Substernal precordial chest pain Status: Acute Review of Systems Respiratory: No cough, No sputum, No wheezing, No shortness of breath, No dyspnea at rest, No hemoptysis Cardiac: No chest pain, No orthopnea, No PND, No edema, No claudication, No palpitations Physical Exam Vital Signs Last Vital Signs Documentation Date Time Temp Pulse Resp B/P (MAP) Pulse Ox O2 Delivery O2 Flow Rate FiO2 06/06/17 12:00 Room Air 06/06/17 11:50 36.6 76 18 127/80 (96) 94 Physical Exam Constitutional: General Apperance: well-developed, overweight Level of Distress: NAD ENMT: normal ENT inspection, hearing grossly normal Neck: supple, trachea midline Lungs: Auscultation: breath sounds normal, no wheezing, no rales/crackles, no rhonchi Cardiovascular: Heart Auscultation: RRR, normal S1, normal S2, no murmurs Peripheral Pulses: Radial Pulse: normal on the left, normal on the right Abdomen: Bowel Sounds: normal Inspection & Palpation: soft, non-distended, no tenderness, guarding & rebound Musculoskeletal: normal Extremities: no cyanosis, no edema, no clubbing, no ulcers Neurologic: Gait & Station: pertinent finding (No focal deficit.) Cranial Nerves: grossly intact Assessment and Plan Assessment and Plan FINAL IMPRESSION: 1. Atypical chest discomfort 2. History of cholelithiasis with a ping pong size gallbladder stone, which is currently under observation by her primary care physician. LFTs currently within normal limits. PLAN AND RECOMMENDATIONS: Dobutamine stress echocardiography will be performed for further risk stratification. If stress testing within normal limits recommend further evaluation of noncardiac etiologies of chest discomfort including follow-up for known cholelithiasis. Further recommendations pending review of stress testing. No medication changes at this time. Laboratory Results Last 24 Hours Test 06/05/17 18:55 06/06/17 05:24 Total Creatine Kinase 42 U/L Creatine Kinase MB < 0.5 ng/ml Creatine Kinase MB Ratio Troponin I < 0.015 ng/ml Triglycerides Level 129 mg/dl Cholesterol Level 232 mg/dl HDL Cholesterol 60 mg/dl LDL Cholesterol, Calculated 146 mg/dl VLDL Cholesterol, Calculated 26 mg/dl Cholesterol/HDL Ratio 3.9
[2017-06-06] MEDS ORDERED: ASPEC81 PO (14:53)
--- NOTE | 2017-06-06 15:00 | Discharge Instructions ---
Discharge Instructions Date of Service Jun 06, 2017. Admission Reason for Admission: Chest Pains Discharge Discharge Diagnosis / Problem: Chest Pain; possibly LEIF vs. musculoskeletal Discharge Goals Goal(s): Decrease discomfort, Improve function, Diagnostic testing, Therapeutic intervention Activity Recommendations Activity Limitations: resume your previous activity . Instructions / Follow-Up Instructions / Follow-Up Please follow-up with Dr. Macias on June 13 at 10:00AM You should take aspirin 81mg daily You may need a sleep study as an outpatient Your total cholesterol is elevated; please try aerobic exercise 30 minutes/day for five days per week Current Hospital Diet Patient's current hospital diet: AHA Diet (Heart Healthy) Discharge Diet Recommended Diet: Regular Diet Pending Studies Studies pending at discharge: no Laboratory Results Lipid Panel Test 06/06/17 05:24 Range/Units Triglycerides Level 129 0-150 mg/dl Cholesterol Level 232 H 0-200 mg/dl HDL Cholesterol 60 mg/dl Cholesterol/HDL Ratio 3.9 LDL Cholesterol, Calculated 146 mg/dl Medical Emergencies . Who to Call and When: Medical Emergencies: If at any time you feel your situation is an emergency, please call 911 immediately. . Non-Emergent Contact Non-Emergency issues call your: Primary Care Provider . . "Provider Documentation" section prepared by Val Cortés. . VTE Core Measure Inpt VTE Proph given/why not?: Unfractionated heparin SQ
--- NOTE | 2017-06-06 15:02 | Discharge Summary ---
Discharge Summary Date of Service Jun 06, 2017. Discharge Summary Admission Date: Jun 05, 2017 at 11:25 Discharge Date: Jun 06, 2017 Discharge Disposition: Home Principal Diagnosis: Chest Pain/shortness of breath - possibly musculoskeletal vs. sleep apnea Medication Reconciliation New Medications: Aspirin (Aspirin EC Low Dose) 81 Mg Ectab 81 MG PO QAM for 30 Days, #30 TABS Continued Medications: Albuterol (Ventolin Hfa) 60 Puffs/5400 Mcg Aers 2 PUFFS INH Q4H PRN for Wheezing Glucosamine Sulfate (Glucosamine) 1,000 Mg Tab 1000 MG PO DAILY, TAB Admission Information HPI (per Admitting provider): This is a 56 y/o female who presents to the ED with chest pain. Patient reports waking up with substernal pressure with associated SOB, diaphoresis, dizziness, tingling of bilateral arms. Episode lasted approximately 2 hours[address] Her drove her to ER and pain was resolving when she arrived. She required assistance out of the vehicle. She was treated with oxygen, 4 baby aspirin, and IVF's. Then in the ER while ambulating in the hallway she had recurrent chest pain which resolved with rest. She is now feeling asymptomatic. She has not taken any nitro. Patient denies fever, URI symptoms, cough, abdominal pain, acid reflux, N/V, bowel or bladder changes, rash, anxiety. No heavy lifting. Was seen by PCP 6 days ago for nausea which resolved with discontinuation of her vitamins. Pt tripped on a curb at [email or web address] 4 days ago and fell onto her right knee. No head trauma or LOC. Developed R knee and ankle pain and swelling, improving with ice and Advil. Still has mild R knee discomfort with ambulating and stairs. Has underlying OA of right knee. No history of CAD, HTN, HL, DM. Had heart murmur during childhood. No recent echo or stress test. Physical Exam (per Admitting): General Appearance: WD/WN, no apparent distress, + pertinent finding (alert 56 year old female, no distress, at bedside) Head: normocephalic, atraumatic Eyes: normal inspection, PERRL, EOMI ENT: hearing grossly normal, pharynx normal Neck: supple, trachea midline Respiratory/Chest: chest non-tender, lungs clear, normal breath sounds, no respiratory distress, no accessory muscle use Cardiovascular: regular rate, rhythm, no murmur, normal peripheral pulses Abdomen/GI: normal bowel sounds, non tender, soft Extremities/Musculoskelatal: no calf tenderness, no pedal edema, + pertinent finding (right knee and right ankle nontender to palpation, no pain on ROM) Neurologic/Psych: alert, normal mood/affect, oriented x 3 Skin: normal color, warm/dry, no rash (no rash on the chest) Hospital Course Chest Pain r/o ACS cardiac enzymes negative x3 resting echo with no valvular/wall motion issues, normal LVEF appreciate cardiology input; stress test today EKG appears similar to previously may need outpatient sleep study to assess for LEIF RUQ U/S pending to assess for cholecystitis/cholelithiasis Hypercholesterolemia total cholesterol elevated >200 no ASCVD, no DM2 10 year ASCVD risk is low recommended dietary changes and exercise 30 minutes/day x 5days/week DVT ppx subq heparin FULL CODE d/c home if stress test is negative Total time spent on discharge = 20 minutes This includes examination of the patient, discharge planning, medication reconciliation, and communication with other providers. Discharge Instructions Please follow-up with Dr. Macias on June 13 at 10:00AM You should take aspirin 81mg daily You may need a sleep study as an outpatient Your total cholesterol is elevated; please try aerobic exercise 30 minutes/day for five days per week
[2017-06-06 15:05] VITALS: BP 127/80; PULSE 76; TEMP 36.6; O2SAT 94
== END 2017-06-06 15:28 | disposition home or self-care (01) ==
LOC: C.EDB 07:03 → C.2E 11:25 → ENRESERV 11:50
PROVIDERS: ADMIT Family Medicine; ATTEND Family Medicine
DX: R07.9 Chest pain, unspecified (principal); R06.02 Shortness of breath; E78.00 Pure hypercholesterolemia, unspecified; Z83.3 Family history of diabetes mellitus; Z82.5 Family history of asthma and other chronic lower respiratory diseases